=== PATIENT | male | born 1965 | race Caucasian/White ===

== ENCOUNTER 2019-08-02 04:16 | Emergency (ER) | payer MEDICAID ==
[~2019-08-02] VITALS: Ht 177.8 cm; Wt 111.4 kg
[~2019-08-02 04:16] MED LIST: ASPI-728 PO; ATOR20TA86 PO; FENT-76 TD; MESA400C2 PO; OMEP20 PO; PRED20 PO
[2019-08-02] MEDS ORDERED: IBUPROFEN 400 MG TABLET PO ONE (05:00)
[2019-08-02] MEDS ORDERED: ACETAMINOPHEN 325 MG TABLET PO ONE (05:00)
[2019-08-02 06:27] VITALS: BP 148/98
== END 2019-08-02 07:32 | disposition home or self-care (01) ==
LOC: EMS 04:17
DX: S02.2XXA Fracture of nasal bones, initial encounter for closed fracture (principal); I25.2 Old myocardial infarction; E78.00 Pure hypercholesterolemia, unspecified; Z88.0 Allergy status to penicillin; Z79.82 Long term (current) use of aspirin; Z59.0 Homelessness; Y04.2XXA Assault by strike against or bumped into by another person, initial encounter; Y93.89 Activity, other specified; Y92.89 Other specified places as the place of occurrence of the external cause; Y99.8 Other external cause status
CPT/HCPCS: 70486